=== PATIENT | female | born 1955 | race Caucasian/White ===

== ENCOUNTER 2023-03-12 12:56 | Outpatient (OUT) | payer MEDICARE, SELFPAY ==
--- NOTE | 2023-03-12 13:04 | XR_ITS ---
The [address] [address] Patient Name: JULIA FERNANDEZ MRN: [id number] date: 1955 Sex: F Assigned Patient Location: [facility] Current Patient Location: [facility] Accession/Order Number: [id number] Exam Date: 03/12/2023 13:04 Report Date: 03/12/2023 15:47 At the request of: STEPHANY العراقي Procedure: XR foot RT min 3V PROCEDURE: XR foot RT min 3V DATE: 03/12/2023 12:04 PM CDT COMPARISONS: 12/10/2022 CLINICAL INDICATION: RIGHT FOOT PAIN FINDINGS: There is no evidence of fractures or other acute osseous abnormalities. There is again evidence of previous osteotomy of the os calcis. 2 oblique pins traverse the osteotomy site. There is again dorsal fixation plate first tarsometatarsal joint fixing by screws. An oblique pin also traverses this joint space. The findings are stable. Surgical hardware appears intact. XR/XR foot RT min 3V IMPRESSION: Stable postop changes of the right foot. . Electronically authenticated by: MICHELLE READ Date: 03/12/2023 15:47
== END 2023-03-12 12:57 | disposition home or self-care (01) ==
LOC: RAD 12:57
PROVIDERS: Visit Provider Podiatrist Foot & Ankle Surgery
DX: M19.071 Primary osteoarthritis, right ankle and foot (principal)
CPT/HCPCS: 73630